=== PATIENT | female | born 1935 | race Caucasian/White ===

== ENCOUNTER 2023-06-04 23:05 | Emergency (ER) | payer MEDICARE, OTHER ==
[2023-06-05] MEDS ORDERED: Acetaminophen 325 MG Tab PO ONE (00:06)
[2023-06-05] MEDS ORDERED: Diphtheria,Pertussis(Acell),Tetanus Vaccine 0.5 ML Syringe IM ONE (00:06)
[2023-06-05 00:33] LABS: HEMATOCRIT 36.2 % (37.0-47.0); HEMOGLOBIN 12.1 gm/dl (12.0-16.0); MEAN CORPUSCULAR HEMOGLOBIN 29.4 pg (28.0-32.0); MEAN CORPUSCULAR HGB CONC 33.4 g/dl (32.0-36.0); MEAN CORPUSCULAR VOLUME 88.1 fl (83.0-99.0); PLATELET COUNT,PLT 197 K/mm3 (150-400); RED BLOOD CELL COUNT 4.11 M/mm3 (4.10-5.30); WHITE BLOOD CELL COUNT,WBC 12.18 K/mm3 (3.9-11.3)
[2023-06-05] MEDS ORDERED: Sodium Chloride 0.9% 1,000 ML IV ONE (00:49)
[2023-06-05 01:00] LABS: A/G RATIO 0.9 (1-2); ALBUMIN 3.6 g/dl (3.4-5.0); ANION GAP 14.1 (5-15); CALCIUM 9.5 mg/dL (8.5-10.1); CREATININE 0.9 mg/dL (0.55-1.02); EST CRCL DRUG DOSING (CG) 37.63 mL/min; POTASSIUM,K 3.1 mEq/L (3.5-5.1); PROTEIN TOTAL,TP 7.6 g/dl (6.4-8.2)
[2023-06-05 01:20] LABS: BAND PERCENT MAN 0 % (0-10); BASOPHILS PERCENT MAN 0 (0.1-1.2); EOSINOPHILS PERCENT MAN 0 % (0.7-5.8); LYMPHOCYTES % ATYPICAL MANUAL 0 %; LYMPHOCYTES PERCENT MAN 25 % (20-40); MONOCYTES PERCENT MAN 6 % (2-10)
[2023-06-05 01:21] LABS: PLATELET COUNT ESTIMATE ADEQUATE
== END 2023-06-05 03:54 | disposition home or self-care (01) ==
LOC: JD.ED 23:05
DX: S01.01XA Laceration without foreign body of scalp, initial encounter (principal); I10 Essential (primary) hypertension; W00.0XXA Fall on same level due to ice and snow, initial encounter
CPT/HCPCS: 12001; 36415; 70450; 70450-26; 72125; 72125-26; 80053; 84484; 85007; 85027; 90471; 90715; 93005; 93010; 99284; 99284-25; A9270-GY

== ENCOUNTER 2023-07-31 22:50 | Emergency (ER) | payer MEDICARE, OTHER ==
[2023-07-31 23:55] LABS: BASOPHILS PERCENT AUTO 0.1 % (0.0-1.0); EOSINOPHILS PERCENT AUTO 0.2 % (0.0-6.0); HEMATOCRIT 36.8 % (37.0-47.0); IMMATURE GRAN ABSOLUTE AUTO 0.03 K/mm3 (0.00-0.05); IMMATURE GRAN PERCENT AUTO 0.4 % (0.0-0.4); LYMPHOCYTES ABSOLUTE AUTO 1.8 K/mm3 (1.0-4.8); LYMPHOCYTES PERCENT AUTO 21.9 % (24.0-44.0); MEAN CORPUSCULAR HEMOGLOBIN 29.6 pg (28.0-32.0); MEAN CORPUSCULAR HGB CONC 35.3 g/dl (32.0-36.0); MEAN CORPUSCULAR VOLUME 83.8 fl (83.0-99.0); MEAN PLATELET VOLUME 10.7 fl (9.4-12.3); MONOCYTES ABSOLUTE AUTO 0.7 K/mm3 (0.0-0.8); MONOCYTES PERCENT AUTO 8.5 % (0.0-8.0); NEUTROPHILS ABSOLUTE AUTO 5.6 K/mm3 (1.8-7.7); NEUTROPHILS PERCENT AUTO 68.9 % (41.0-71.0); PLATELET COUNT,PLT 217 K/mm3 (150-400); RED BLOOD CELL COUNT 4.39 M/mm3 (4.10-5.30); WHITE BLOOD CELL COUNT,WBC 8.16 K/mm3 (3.9-11.3)
[2023-07-31] MEDS ORDERED: Sodium Chloride 0.9% 10 ML Syringe FLUSH PRN (23:57)
[2023-08-01] MEDS: Sodium Chloride 0.9% 1,000 ML IV ONE (00:04)
[2023-08-01 00:06] LABS: ALANINE AMINOTRANSFERASE,ALT 18 U/L (14-59); ALBUMIN 4.2 g/dl (3.4-5.0); ALKALINE PHOSPHATASE 99 U/L (46-116); ANION GAP 15.9 (5-15); ASPARTATE AMNIOTRANSFERASE,AST 19 U/L (15-37); BILIRUBIN TOTAL 1.6 mg/dL (0.2-1.0); BLOOD UREA NITROGEN,BUN 10 mg/dL (7-18); BUN/CREATININE RATIO 11.1 (14-18); CALCIUM 9.4 mg/dL (8.5-10.1); CARBON DIOXIDE,CO2 24 mEq/L (21-32); CHLORIDE,CL 89 mEq/L (98-107); CREATININE 0.9 mg/dL (0.55-1.02); ESTIMATED GFR 61 mL/min (>60); GLUCOSE RANDOM 123 mg/dL (70-99); POTASSIUM,K 3.9 mEq/L (3.5-5.1); PROTEIN TOTAL,TP 8.4 g/dl (6.4-8.2); SODIUM,NA 125 mEq/L (136-145)
[2023-08-01] MEDS: Ondansetron 4 MG/2 ML SDV IVPUSH ONE (00:10)
== END 2023-08-01 01:42 | disposition home or self-care (01) ==
LOC: JD.ED 22:50
DX: N39.0 Urinary tract infection, site not specified (principal); T50.905A Adverse effect of unspecified drugs, medicaments and biological substances, initial encounter; I70.0 Atherosclerosis of aorta; I10 Essential (primary) hypertension; Z79.899 Other long term (current) drug therapy
CPT/HCPCS: 36415; 71045; 80053; 83735; 85025; 96361; 96374; 99284; J2405; J7030